=== PATIENT | male | born 1995 | race Caucasian/White ===

== ENCOUNTER 2016-09-05 09:31 | Emergency (ER) | payer OTHER ==
[~2016-09-05] VITALS: Ht 177.8 cm; Wt 79.1 kg
[2016-09-05 09:32] VITALS: BP 134/60
[2016-09-05] MEDS ORDERED: predniSONE 20 MG TAB PO ONE (10:00)
[2016-09-05] MEDS ORDERED: AUGMENTIN 875 MG TAB PO ONE (10:00)
[2016-09-05] MEDS ORDERED: LORATADINE 10 MG TAB PO ONE (10:00)
[2016-09-05] MEDS ORDERED: AUGM875T28 PO (10:13)
[2016-09-05] MEDS ORDERED: PRED20TA PO (10:13)
[2016-09-05] MEDS ORDERED: CLAR1TAB2 PO (10:13)
== END 2016-09-05 10:16 | disposition home or self-care (01) ==
LOC: M ED 09:31
DX: H01.8 Other specified inflammations of eyelid (principal); W57.XXXA Bitten or stung by nonvenomous insect and other nonvenomous arthropods, initial encounter; Y92.89 Other specified places as the place of occurrence of the external cause; Y93.89 Activity, other specified; Y99.9 Unspecified external cause status

== ENCOUNTER 2016-10-24 06:09 | Emergency (ER) | payer OTHER ==
[~2016-10-24] VITALS: Ht 177.8 cm; Wt 78.2 kg
[~2016-10-24 06:09] MED LIST: AUGM875T28 PO; CLAR1TAB2 PO; PRED20TA PO
[2016-10-24 06:14] VITALS: BP 133/76
[2016-10-24] MEDS ORDERED: BENA25TA10 PO (06:18)
[2016-10-24] MEDS ORDERED: PRED20TA PO (06:37)
[2016-10-24] MEDS ORDERED: KEFL500C17 PO (06:37)
[2016-10-24] MEDS ORDERED: predniSONE 20 MG TAB PO ONE (06:45)
[2016-10-24] MEDS ORDERED: CEPHALEXIN 500 MG CAP PO ONE (06:45)
== END 2016-10-24 06:49 | disposition home or self-care (01) ==
LOC: M ED 06:09
DX: L03.114 Cellulitis of left upper limb (principal); W57.XXXA Bitten or stung by nonvenomous insect and other nonvenomous arthropods, initial encounter; Y92.89 Other specified places as the place of occurrence of the external cause; Y93.89 Activity, other specified; Y99.9 Unspecified external cause status

== ENCOUNTER 2018-04-10 22:22 | Emergency (ER) | payer OTHER ==
[~2018-04-10] VITALS: Ht 180.3 cm; Wt 82.3 kg
[~2018-04-10 22:22] MED LIST changes: +BENA25TA10 PO; +KEFL500C17 PO
[2018-04-11 01:30] LABS: ALBUMIN 4.3 GM/DL (3.2-5.2); ALT/SGPT 22 U/L (12-78); BILIRUBIN,DIRECT 0.1 MG/DL (0.0-0.2); BILIRUBIN,TOTAL 0.4 MG/DL (0.2-1.0); BLOOD UREA NITROGEN 11 MG/DL (7-18); CALCIUM LEVEL 8.3 MG/DL (8.5-10.1); CARBON DIOXIDE LEVEL 26 MEQ/L (21-32); CHLORIDE LEVEL 105 MEQ/L (98-107); CREATININE FOR GFR 0.95 MG/DL (0.70-1.30); GLOMERULAR FILTRATION RATE > 60.0 (>60); GLUCOSE, FASTING 99 MG/DL (70-100); POTASSIUM SERUM 3.4 MEQ/L (3.5-5.1); SODIUM LEVEL 140 MEQ/L (136-145); TOTAL PROTEIN 7.7 GM/DL (6.4-8.2)
[2018-04-11 02:13] LABS: CHLAMYDIA DNA AMPLIFICATION NEGATIVE (NEGATIVE); GC DNA AMPLIFICATION NEGATIVE (NEGATIVE)
[2018-04-11 02:27] VITALS: BP 150/80
== END 2018-04-11 02:26 | disposition home or self-care (01) ==
LOC: M ED 22:22
DX: R35.0 Frequency of micturition (principal)